=== PATIENT | female | born 1940 | race Caucasian/White ===

== ENCOUNTER 2022-08-16 13:49 | Inpatient (IN) | payer MEDICARE, BC ==
[2022-08-16] MEDS: Acetaminophen 500 MG Tab PO SCH ×2 (17:36→20:39)
[2022-08-16] MEDS: Donepezil 10 MG Tab PO SCH (20:37)
[2022-08-16] MEDS: Rosuvastatin 20 MG Tab PO SCH (20:37)
[2022-08-16] MEDS ORDERED: Oxybutynin 5 MG Tab PO SCH (21:00)
[2022-08-17 06:50] LABS: ESTIMATED GFR 92 mL/min (>60)
[2022-08-17] MEDS: Calcium Carbonate 500 MG Tablet PO SCH (08:21)
[2022-08-17] MEDS: Acetaminophen 500 MG Tab PO SCH ×3 (08:21→21:09)
[2022-08-17] MEDS: Ergocalciferol (Vitamin D2) 1.25 MG Cap PO SCH (08:22)
[2022-08-17] MEDS ORDERED: Acetaminophen 500 MG Tab PO SCH (09:00)
[2022-08-17] MEDS: Ofloxacin 0.3% Ophth Soln 5 ML Bottle EYEBOTH SCH ×4 (09:56→21:13)
[2022-08-17] MEDS: Sodium Chloride 2% Ophth Soln 15 ML Bottle EYEBOTH SCH ×2 (11:34→21:10)
[2022-08-17] MEDS: Cholestyramine/Sucrose Powder 4 GM Packet PO SCH (11:35)
[2022-08-17] MEDS: Donepezil 10 MG Tab PO SCH (21:10)
[2022-08-17] MEDS: Rosuvastatin 20 MG Tab PO SCH (21:10)
[2022-08-18] MEDS: Ofloxacin 0.3% Ophth Soln 5 ML Bottle EYEBOTH SCH ×6 (02:45→20:01)
[2022-08-18] MEDS: Acetaminophen 500 MG Tab PO SCH ×3 (08:34→20:00)
[2022-08-18] MEDS: Calcium Carbonate 500 MG Tablet PO SCH (08:35)
[2022-08-18] MEDS: Sodium Chloride 2% Ophth Soln 15 ML Bottle EYEBOTH SCH ×2 (08:36→19:59)
[2022-08-18] MEDS: Cholestyramine/Sucrose Powder 4 GM Packet PO SCH (12:03)
[2022-08-18] MEDS: Donepezil 10 MG Tab PO SCH (20:00)
[2022-08-18] MEDS: Rosuvastatin 20 MG Tab PO SCH (20:00)
[2022-08-19] MEDS: Calcium Carbonate 500 MG Tablet PO SCH (08:48)
[2022-08-19] MEDS: Sodium Chloride 2% Ophth Soln 15 ML Bottle EYEBOTH SCH ×2 (08:48→20:05)
[2022-08-19] MEDS: Ofloxacin 0.3% Ophth Soln 5 ML Bottle EYEBOTH SCH ×4 (08:48→20:05)
[2022-08-19] MEDS: Acetaminophen 500 MG Tab PO SCH ×3 (08:48→20:04)
[2022-08-19] MEDS: Cholestyramine/Sucrose Powder 4 GM Packet PO SCH (11:18)
[2022-08-19] MEDS ORDERED: Carbamide Peroxide 6.5% Otic Soln 15 ML Bottle EARBOTH SCH (14:30)
[2022-08-19] MEDS: predniSONE 20 MG Tab PO SCH (16:15)
[2022-08-19] MEDS: Carboxymethylcellulose Sodium 1% Ophth Gel 15 ML Bottle EYELF SCH ×2 (16:17→20:04)
[2022-08-19] MEDS: valACYclovir 1,000 MG Tab PO SCH (20:04)
[2022-08-19] MEDS: Donepezil 10 MG Tab PO SCH (20:04)
[2022-08-19] MEDS: Rosuvastatin 20 MG Tab PO SCH (20:04)
[2022-08-19] MEDS: Carbamide Peroxide 6.5% Otic Soln 15 ML Bottle EARBOTH SCH (20:05)
[2022-08-20] MEDS: predniSONE 20 MG Tab PO SCH (08:08)
[2022-08-20] MEDS: Sodium Chloride 2% Ophth Soln 15 ML Bottle EYEBOTH SCH ×2 (08:08→20:08)
[2022-08-20] MEDS: Ofloxacin 0.3% Ophth Soln 5 ML Bottle EYEBOTH SCH ×4 (08:10→20:08)
[2022-08-20] MEDS: Acetaminophen 500 MG Tab PO SCH ×3 (08:11→20:07)
[2022-08-20] MEDS: valACYclovir 1,000 MG Tab PO SCH ×3 (08:11→20:07)
[2022-08-20] MEDS: Calcium Carbonate 500 MG Tablet PO SCH (08:11)
[2022-08-20] MEDS: Carboxymethylcellulose Sodium 1% Ophth Gel 15 ML Bottle EYELF SCH ×4 (08:13→20:08)
[2022-08-20] MEDS: Cholestyramine/Sucrose Powder 4 GM Packet PO SCH (13:20)
[2022-08-20] MEDS: Donepezil 10 MG Tab PO SCH (20:07)
[2022-08-20] MEDS: Rosuvastatin 20 MG Tab PO SCH (20:07)
[2022-08-20] MEDS: Carbamide Peroxide 6.5% Otic Soln 15 ML Bottle EARBOTH SCH (20:08)
[2022-08-21] MEDS: predniSONE 20 MG Tab PO SCH (08:46)
[2022-08-21] MEDS: Sodium Chloride 2% Ophth Soln 15 ML Bottle EYEBOTH SCH ×2 (08:47→20:34)
[2022-08-21] MEDS: Ofloxacin 0.3% Ophth Soln 5 ML Bottle EYEBOTH SCH ×4 (08:47→20:33)
[2022-08-21] MEDS: Carboxymethylcellulose Sodium 1% Ophth Gel 15 ML Bottle EYELF SCH ×4 (08:48→20:33)
[2022-08-21] MEDS: Acetaminophen 500 MG Tab PO SCH ×3 (08:48→20:33)
[2022-08-21] MEDS: valACYclovir 1,000 MG Tab PO SCH ×3 (08:49→20:33)
[2022-08-21] MEDS: Calcium Carbonate 500 MG Tablet PO SCH (08:50)
[2022-08-21] MEDS: Cholestyramine/Sucrose Powder 4 GM Packet PO SCH (12:21)
[2022-08-21] MEDS: Rosuvastatin 20 MG Tab PO SCH (20:33)
[2022-08-21] MEDS: Donepezil 10 MG Tab PO SCH (20:33)
[2022-08-21] MEDS: Carbamide Peroxide 6.5% Otic Soln 15 ML Bottle EARBOTH SCH (20:34)
[2022-08-22] MEDS: predniSONE 20 MG Tab PO SCH (09:05)
[2022-08-22] MEDS: Sodium Chloride 2% Ophth Soln 15 ML Bottle EYEBOTH SCH ×2 (09:06→20:07)
[2022-08-22] MEDS: Carboxymethylcellulose Sodium 1% Ophth Gel 15 ML Bottle EYELF SCH ×4 (09:07→20:08)
[2022-08-22] MEDS: Ofloxacin 0.3% Ophth Soln 5 ML Bottle EYEBOTH SCH ×4 (09:07→20:08)
[2022-08-22] MEDS: valACYclovir 1,000 MG Tab PO SCH ×3 (09:08→20:06)
[2022-08-22] MEDS: Calcium Carbonate 500 MG Tablet PO SCH (09:08)
[2022-08-22] MEDS: Acetaminophen 500 MG Tab PO SCH ×3 (09:08→20:06)
[2022-08-22] MEDS: Cholestyramine/Sucrose Powder 4 GM Packet PO SCH (12:17)
[2022-08-22] MEDS: Rosuvastatin 20 MG Tab PO SCH (20:06)
[2022-08-22] MEDS: Donepezil 10 MG Tab PO SCH (20:06)
[2022-08-22] MEDS: Carbamide Peroxide 6.5% Otic Soln 15 ML Bottle EARBOTH SCH (20:08)
[2022-08-23] MEDS ORDERED: Acetaminophen 325 MG Tab PO PRN (01:59)
[2022-08-23] MEDS: Sodium Chloride 2% Ophth Soln 15 ML Bottle EYEBOTH SCH ×2 (09:03→20:00)
[2022-08-23] MEDS: predniSONE 20 MG Tab PO SCH (09:03)
[2022-08-23] MEDS: Acetaminophen 500 MG Tab PO SCH ×3 (09:04→20:00)
[2022-08-23] MEDS: Carboxymethylcellulose Sodium 1% Ophth Gel 15 ML Bottle EYELF SCH ×4 (09:04→20:00)
[2022-08-23] MEDS: valACYclovir 1,000 MG Tab PO SCH ×3 (09:04→20:00)
[2022-08-23] MEDS: Calcium Carbonate 500 MG Tablet PO SCH (09:05)
[2022-08-23] MEDS: Ofloxacin 0.3% Ophth Soln 5 ML Bottle EYEBOTH SCH ×4 (10:09→20:00)
[2022-08-23] MEDS: Cholestyramine/Sucrose Powder 4 GM Packet PO SCH (11:58)
[2022-08-23] MEDS: Rosuvastatin 20 MG Tab PO SCH (20:00)
[2022-08-23] MEDS: Donepezil 10 MG Tab PO SCH (20:00)
[2022-08-24] MEDS ORDERED: predniSONE 10 MG Tab PO SCH (08:00)
[2022-08-24] MEDS: Sodium Chloride 2% Ophth Soln 15 ML Bottle EYEBOTH SCH ×2 (08:50→22:09)
[2022-08-24] MEDS: Acetaminophen 500 MG Tab PO SCH ×3 (08:51→22:08)
[2022-08-24] MEDS: Calcium Carbonate 500 MG Tablet PO SCH (08:51)
[2022-08-24] MEDS: valACYclovir 1,000 MG Tab PO SCH ×3 (08:52→22:08)
[2022-08-24] MEDS: Carboxymethylcellulose Sodium 1% Ophth Gel 15 ML Bottle EYELF SCH ×4 (08:53→22:09)
[2022-08-24] MEDS: Ergocalciferol (Vitamin D2) 1.25 MG Cap PO SCH (08:53)
[2022-08-24] MEDS: Cholestyramine/Sucrose Powder 4 GM Packet PO SCH (12:56)
[2022-08-24] MEDS: Rosuvastatin 20 MG Tab PO SCH (22:08)
[2022-08-24] MEDS: Donepezil 10 MG Tab PO SCH (22:09)
[2022-08-25] MEDS: Sodium Chloride 2% Ophth Soln 15 ML Bottle EYEBOTH SCH ×2 (07:59→21:24)
[2022-08-25] MEDS ORDERED: predniSONE 10 MG Tab PO SCH (08:00)
[2022-08-25] MEDS: Calcium Carbonate 500 MG Tablet PO SCH (08:00)
[2022-08-25] MEDS: valACYclovir 1,000 MG Tab PO SCH ×3 (08:01→21:23)
[2022-08-25] MEDS: Acetaminophen 500 MG Tab PO SCH ×3 (08:01→21:23)
[2022-08-25] MEDS: Carboxymethylcellulose Sodium 1% Ophth Gel 15 ML Bottle EYELF SCH ×4 (08:04→21:23)
[2022-08-25] MEDS: Cholestyramine/Sucrose Powder 4 GM Packet PO SCH (13:00)
[2022-08-25] MEDS: Donepezil 10 MG Tab PO SCH (21:25)
[2022-08-25] MEDS: Rosuvastatin 20 MG Tab PO SCH (21:25)
[2022-08-26] MEDS ORDERED: predniSONE 10 MG Tab PO SCH (08:00)
[2022-08-26] MEDS: Carboxymethylcellulose Sodium 1% Ophth Gel 15 ML Bottle EYELF SCH ×4 (08:01→20:55)
[2022-08-26] MEDS: Sodium Chloride 2% Ophth Soln 15 ML Bottle EYEBOTH SCH ×2 (08:01→20:56)
[2022-08-26] MEDS: Calcium Carbonate 500 MG Tablet PO SCH (08:02)
[2022-08-26] MEDS: Acetaminophen 500 MG Tab PO SCH ×3 (08:02→20:56)
[2022-08-26] MEDS: valACYclovir 1,000 MG Tab PO SCH ×3 (08:03→20:55)
[2022-08-26] MEDS: Cholestyramine/Sucrose Powder 4 GM Packet PO SCH (12:01)
[2022-08-26] MEDS: Donepezil 10 MG Tab PO SCH (20:55)
[2022-08-26] MEDS: Rosuvastatin 20 MG Tab PO SCH (20:56)
[2022-08-27] MEDS ORDERED: predniSONE 10 MG Tab PO SCH (08:00)
[2022-08-27] MEDS: Acetaminophen 500 MG Tab PO SCH ×3 (08:25→20:40)
[2022-08-27] MEDS: Sodium Chloride 2% Ophth Soln 15 ML Bottle EYEBOTH SCH ×2 (08:26→20:39)
[2022-08-27] MEDS: Carboxymethylcellulose Sodium 1% Ophth Gel 15 ML Bottle EYELF SCH ×4 (08:26→20:39)
[2022-08-27] MEDS: Calcium Carbonate 500 MG Tablet PO SCH (08:26)
[2022-08-27] MEDS: Cholestyramine/Sucrose Powder 4 GM Packet PO SCH (12:29)
[2022-08-27] MEDS: Donepezil 10 MG Tab PO SCH (20:38)
[2022-08-27] MEDS: Rosuvastatin 20 MG Tab PO SCH (20:38)
[2022-08-28] MEDS ORDERED: predniSONE 10 MG Tab PO SCH (08:00)
[2022-08-28] MEDS: Sodium Chloride 2% Ophth Soln 15 ML Bottle EYEBOTH SCH ×2 (08:32→20:44)
[2022-08-28] MEDS: Acetaminophen 500 MG Tab PO SCH ×3 (08:33→20:45)
[2022-08-28] MEDS: Calcium Carbonate 500 MG Tablet PO SCH (08:33)
[2022-08-28] MEDS: Carboxymethylcellulose Sodium 1% Ophth Gel 15 ML Bottle EYELF SCH ×4 (08:33→20:44)
[2022-08-28] MEDS: Cholestyramine/Sucrose Powder 4 GM Packet PO SCH (11:17)
[2022-08-28] MEDS: Rosuvastatin 20 MG Tab PO SCH (20:44)
[2022-08-28] MEDS: Donepezil 10 MG Tab PO SCH (20:44)
[2022-08-29] MEDS: Acetaminophen 500 MG Tab PO SCH ×3 (08:30→20:35)
[2022-08-29] MEDS: Sodium Chloride 2% Ophth Soln 15 ML Bottle EYEBOTH SCH ×2 (08:30→20:35)
[2022-08-29] MEDS: Carboxymethylcellulose Sodium 1% Ophth Gel 15 ML Bottle EYELF SCH ×4 (08:30→20:35)
[2022-08-29] MEDS: Calcium Carbonate 500 MG Tablet PO SCH (08:30)
[2022-08-29] MEDS: Cholestyramine/Sucrose Powder 4 GM Packet PO SCH (11:31)
[2022-08-29] MEDS: Donepezil 10 MG Tab PO SCH (20:34)
[2022-08-29] MEDS: Rosuvastatin 20 MG Tab PO SCH (20:35)
[2022-08-30] MEDS: Calcium Carbonate 500 MG Tablet PO SCH (08:08)
[2022-08-30] MEDS: Sodium Chloride 2% Ophth Soln 15 ML Bottle EYEBOTH SCH ×2 (08:08→20:18)
[2022-08-30] MEDS: Carboxymethylcellulose Sodium 1% Ophth Gel 15 ML Bottle EYELF SCH ×4 (08:08→20:19)
[2022-08-30] MEDS: Acetaminophen 500 MG Tab PO SCH ×3 (08:09→20:19)
[2022-08-30] MEDS: Cholestyramine/Sucrose Powder 4 GM Packet PO SCH (13:08)
[2022-08-30] MEDS: Rosuvastatin 20 MG Tab PO SCH (20:19)
[2022-08-30] MEDS: Donepezil 10 MG Tab PO SCH (20:20)
[2022-08-31] MEDS: Sodium Chloride 2% Ophth Soln 15 ML Bottle EYEBOTH SCH ×2 (08:29→20:06)
[2022-08-31] MEDS: Acetaminophen 500 MG Tab PO SCH ×3 (08:29→20:05)
[2022-08-31] MEDS: Carboxymethylcellulose Sodium 1% Ophth Gel 15 ML Bottle EYELF SCH ×3 (08:29→20:05)
[2022-08-31] MEDS: Ergocalciferol (Vitamin D2) 1.25 MG Cap PO SCH (08:29)
[2022-08-31] MEDS: Calcium Carbonate 500 MG Tablet PO SCH (08:30)
[2022-08-31] MEDS: Cholestyramine/Sucrose Powder 4 GM Packet PO SCH (12:56)
[2022-08-31] MEDS: Donepezil 10 MG Tab PO SCH (20:05)
[2022-08-31] MEDS: Rosuvastatin 20 MG Tab PO SCH (20:05)
[2022-09-01] MEDS: Sodium Chloride 2% Ophth Soln 15 ML Bottle EYEBOTH SCH ×2 (09:49→20:14)
[2022-09-01] MEDS: Carboxymethylcellulose Sodium 1% Ophth Gel 15 ML Bottle EYELF SCH ×5 (09:50→20:15)
[2022-09-01] MEDS: Calcium Carbonate 500 MG Tablet PO SCH (09:50)
[2022-09-01] MEDS: Acetaminophen 500 MG Tab PO SCH ×3 (09:50→20:17)
[2022-09-01] MEDS: Cholestyramine/Sucrose Powder 4 GM Packet PO SCH (12:43)
[2022-09-01] MEDS: Donepezil 10 MG Tab PO SCH (20:14)
[2022-09-01] MEDS: Rosuvastatin 20 MG Tab PO SCH (20:14)
[2022-09-02] MEDS: Sodium Chloride 2% Ophth Soln 15 ML Bottle EYEBOTH SCH ×2 (09:11→20:52)
[2022-09-02] MEDS: Carboxymethylcellulose Sodium 1% Ophth Gel 15 ML Bottle EYELF SCH ×4 (09:12→20:51)
[2022-09-02] MEDS: Acetaminophen 500 MG Tab PO SCH ×3 (09:12→20:51)
[2022-09-02] MEDS: Calcium Carbonate 500 MG Tablet PO SCH (09:12)
[2022-09-02] MEDS: Cholestyramine/Sucrose Powder 4 GM Packet PO SCH (12:00)
[2022-09-02] MEDS: Rosuvastatin 20 MG Tab PO SCH (20:51)
[2022-09-02] MEDS: Donepezil 10 MG Tab PO SCH (20:51)
[2022-09-02] MEDS ORDERED: Magnesium Hydroxide 400 MG/5 ML Susp 30 ML Cup PO PRN (21:29)
[2022-09-03] MEDS: Carboxymethylcellulose Sodium 1% Ophth Gel 15 ML Bottle EYELF SCH (08:51)
[2022-09-03] MEDS: Sodium Chloride 2% Ophth Soln 15 ML Bottle EYEBOTH SCH (08:51)
[2022-09-03] MEDS: Acetaminophen 500 MG Tab PO SCH (08:51)
[2022-09-03] MEDS: Calcium Carbonate 500 MG Tablet PO SCH (08:51)
== END 2022-09-03 10:20 | disposition home health service (06) | DRG 948 ==
LOC: FB.MS 14:46
PROVIDERS: ADMIT Family Medicine; ATTEND Family Medicine
DX: R53.1 Weakness (principal); D61.818 Other pancytopenia; I95.1 Orthostatic hypotension; M25.531 Pain in right wrist; E83.39 Other disorders of phosphorus metabolism; I10 Essential (primary) hypertension; E78.5 Hyperlipidemia, unspecified; D50.9 Iron deficiency anemia, unspecified; Z66 Do not resuscitate; Z20.822 Contact with and (suspected) exposure to COVID-19; F03.90 Unspecified dementia, unspecified severity, without behavioral disturbance, psychotic disturbance, mood disturbance, and anxiety; H54.7 Unspecified visual loss; M81.0 Age-related osteoporosis without current pathological fracture; E78.00 Pure hypercholesterolemia, unspecified; D69.6 Thrombocytopenia, unspecified; N39.46 Mixed incontinence; R29.810 Facial weakness; Z79.899 Other long term (current) drug therapy; Z88.2 Allergy status to sulfonamides; Z90.710 Acquired absence of both cervix and uterus; Z98.49 Cataract extraction status, unspecified eye; Z90.49 Acquired absence of other specified parts of digestive tract
CPT/HCPCS: 36415; 70450; 73110-RT; 80048; 84100; 84550; 85025; 97110-GO; 97110-GP; 97116-GP; 97129-GO; 97161-GP; 97165-GO; 97530-GO; 97530-GP; 97535-GO; 99306; 99310; 99316; A9270-GY; J3490; J7512; U0002